=== PATIENT | female | born 1990 | race Caucasian/White ===

== ENCOUNTER 2019-01-05 13:43 | Emergency (ER) | payer OTHER ==
[2019-01-05 13:52] VITALS: BMI 34.2
--- NOTE | 2019-01-05 13:53 | PDOC ---
Rapid Medical Evaluation Time Seen by Provider: 01/05/19 13:48 Medical Evaluation: Allergies Allergy/AdvReac Type Severity Reaction Status Date / Time No Known Allergies Allergy Verified 12/30/14 23:15 01/05/19 13:48 The patient presents for diarrhea for 8 days. States she has to use the bathroom after every time she eats. Also admits to abdominal pain after eating. Denies vomiting and blood in the stool. States she took antibiotic recently ( cefdinir) Exam: NAD, abdomen soft, nontender Orders: labs, IV Pt to proceed to the ER for further evaluation Discharge Disposition - Diagnosis Acute diarrhea - Referrals - Patient Instructions - Post Discharge Activity
[2019-01-05] MEDS ORDERED: SODIUM CHLORIDE 1,000 ML IV STA (14:35)
[2019-01-05] MEDS ORDERED: KETOROLAC TROMETHAMINE 30 MG/1 ML VIAL IVPUSH STA (14:35)
[2019-01-05] MEDS ORDERED: PANTOPRAZOLE SODIUM 40 MG VIAL IVPUSH ONE (14:35)
--- NOTE | 2019-01-05 14:38 | PDOC ---
History of Present Illness - General Chief Complaint: Diarrhea Stated Complaint: DIARRHEA Time Seen by Provider: 01/05/19 13:48 History Source: Patient Exam Limitations: No Limitations - History of Present Illness Travel History: No Initial Comments: 01/05/19 14:13 28-year-old female presents to ED with complaints of intermittent diarrhea for the past 8 days. Patient states last normal bowel movement was approximately 8 days ago. Patient states has the urge to defecate every time she eats but unless she pushes she produces no bowel movement. Patient states continues to pass gas, denies recent illness, recent travel, fever or chills. Patient states feels dehydrated and complaining of upper abdominal cramping after meals. Timing/Duration: reports: intermittent Quality: reports: mild, cramping Abdominal Pain Onset Location: reports: epigastric Pain Radiation: reports: no radiation Activities at Onset: reports: eating Aggravating Factors: improves with: Eating Alleviating Factors: worse with: None Past History - Travel Traveled outside of the country in the last 30 days: No Close contact w/someone who was outside of country & ill: No - Past Medical History Allergies/Adverse Reactions: Allergies Allergy/AdvReac Type Severity Reaction Status Date / Time No Known Allergies Allergy Verified 01/05/19 13:52 Anemia: No Asthma: No Cancer: No Cardiac Disorders: No COPD: No Diabetes: No HTN: No Seizures: No Thyroid Disease: No - Surgical History Abdominal Surgery: Yes - Reproductive History Ectopic : No Endometrial CA: No Endometriosis: No Ovarian CA: No PID: No Polycystic Ovaries: No Therapeutic (s) & number: No Tubal Ligation: No - Psycho Social/Smoking Cessation Hx Smoking Status: No Smoking History: Never smoked Have you smoked in the past 12 months: No Number of Cigarettes Smoked Daily: 0 Hx Alcohol Use: No Drug/Substance Use Hx: Yes Substance Use Type: Marijuana Hx Substance Use Treatment: No Abd/GI Specific PMHX - Complaint Specific PMHX GERD: No GI Ulcer Disease: No Review of Systems - Review of Systems Able to Perform ROS?: Yes Constitutional: Yes: Loss of Appetite, Weakness. No: Chills, Fever HEENTM: No: Symptoms Reported Respiratory: No: Symptoms reported Cardiac (ROS): No: Symptoms Reported ABD/GI: Yes: Diarrhea, Nausea, Poor Appetite, Poor Fluid Intake, Abdominal cramping (Epigastric) : No: Symptoms Reported Musculoskeletal: No: Symptoms Reported Integumentary: No: Symptoms Reported Neurological: No: Symptoms reported Endocrine: No: Symptoms Reported Hematologic/Lymphatic: No: Symptoms Reported *Physical Exam - Vital Signs Last Vital Signs Temp Pulse Resp BP Pulse Ox 97.7 F 93 H 14 137/89 100 01/05/19 13:48 01/05/19 13:48 01/05/19 13:48 01/05/19 13:48 01/05/19 13:48 - Physical Exam General Appearance: Yes: Nourished, Appropriately Dressed. No: Apparent Distress HEENT: positive: EOMI, RAFAEL, Pharynx Normal (Dry). negative: Pale Conjunctivae Neck: positive: Supple Respiratory/Chest: positive: Lungs Clear, Normal Breath Sounds. negative: Chest Tender, Respiratory Distress, Accessory Muscle Use Cardiovascular: positive: Regular Rhythm, Regular Rate. negative: Murmur Gastrointestinal/Abdominal: positive: Normal Bowel Sounds, Soft, Tenderness ( Mild epigastric no right upper quadrant). negative: Distended Musculoskeletal: negative: CVA Tenderness Extremity: positive: Normal Inspection Integumentary: positive: Normal Color, Warm, Moist Neurologic: positive: Motor Strength 5/5 (Ambulatory) ED Treatment Course - LABORATORY CBC & Chemistry Diagram: 01/05/19 14:30 01/05/19 14:30 Medical Decision Making - Medical Decision Making 01/05/19 14:51 CC: Diarrhea intermittently for the past 8 days worsened after meals. Patient denies fever, chills but states decreased appetite, epigastric cramping and mild generalized weakness. Exam: Patient with epigastric tenderness on exam no right upper quadrant tenderness Vital signs stable appears dry. Plan: Labs, urine, IV fluids 01/05/19 15:53 Laboratory Tests 01/05/19 01/05/19 01/05/19 14:30 14:30 14:30 WBC 13.8 H Hgb 12.8 Hct 37.7 D Plt Count 459 H MPV 7.2 L Absolute Neuts (auto) 9.6 H PT with INR 12.70 INR 1.08 Sodium 139 Potassium 3.5 Chloride 106 Carbon Dioxide 26 Anion Gap 6 L BUN 13.2 Random Glucose 91 Calcium 9.5 Total Bilirubin 0.3 AST 14 L ALT 24 Alkaline Phosphatase 59 Total Protein 7.7 Albumin 4.6 Ur Specific [place] Urine Protein Urine Ketones Urine Blood Ur Leukocyte Esterase Urine WBC (Auto) Urine RBC (Auto) 01/05/19 15:00 WBC Hgb Hct Plt Count MPV Absolute Neuts (auto) PT with INR INR Sodium Potassium Chloride Carbon Dioxide Anion Gap BUN Random Glucose Calcium Total Bilirubin AST ALT Alkaline Phosphatase Total Protein Albumin Ur Specific [place] 1.040 H Urine Protein 1+ H Urine Ketones 1+ H Urine Blood 3+ H Ur Leukocyte Esterase 1+ H Urine WBC (Auto) 28 Urine RBC (Auto) 68 Patient states started menstruating this a.m. 01/05/19 18:05 Laboratory Tests 01/05/19 14:30 Serum , Qual Negative Patient to go to CAT scan 01/05/19 18:14 Laboratory Tests 01/05/19 14:30 Serum , Qual Negative Patient brought to CAT scan Discharge - Discharge Information Clinical Impression/Diagnosis: Acute diarrhea - Follow up/Referral - Patient Discharge Instructions - Post Discharge Activity
[2019-01-05 14:51] LABS: BASO % 0.9 % (0-2.0); EOS % 0.6 % (0-4.5); HEMATOCRIT 37.7 % (32.4-45.2); HEMOGLOBIN 12.8 GM/dL (10.7-15.3); LYMPH % 19.5 % (8-40); MCH 28.5 pg (25.7-33.7); MCHC 33.9 g/dl (32.0-36.0); MEAN CELL VOLUME 84.1 fl (80-96); MEAN PLT VOLUME 7.2 fl (7.5-11.1); MONO % 9.2 % (3.8-10.2); NEUT % 69.8 % (42.8-82.8); PLATELET COUNT 459 K/MM3 (134-434); RBC 4.48 M/mm3 (3.60-5.2); RDW 14.2 % (11.6-15.6); WHITE BLOOD COUNT 13.8 K/mm3 (4.0-10.0)
[2019-01-05] MEDS ORDERED: PANTOPRAZOLE SODIUM 40 MG VIAL ONE (15:06)
[2019-01-05] MEDS ORDERED: KETOROLAC TROMETHAMINE 30 MG/1 ML VIAL ONE (15:06)
[2019-01-05 15:19] LABS: INR 1.08 (0.83-1.09); PROTHROMBIN TIME (PATIENT) 12.7 SEC (9.7-13.0)
[2019-01-05 15:21] LABS: ALBUMIN 4.6 g/dl (3.4-5.0); BILIRUBIN,TOTAL 0.3 mg/dL (0.2-1); BLOOD UREA NITROGEN 13.2 mg/dL (7-18); CALCIUM 9.5 mg/dL (8.5-10.1); CREATININE 0.6 mg/dL (0.55-1.3); POTASSIUM 3.5 mmol/L (3.5-5.1); TOT PROT 7.7 g/dl (6.4-8.2)
[2019-01-05 15:48] LABS: HYALINE CASTS 27 /lpf (0-8); URINE APPEARANCE CLOUDY; URINE BILIRUBIN NEGATIVE (NEGATIVE); URINE COLOR YELLOW; URINE GLUCOSE (UA) NEGATIVE (NEGATIVE); URINE KETONE 1+ (NEGATIVE); URINE LEUK ESTERASE 1+ (NEGATIVE); URINE NITRITE NEGATIVE (NEGATIVE); URINE PROTEIN 1+ (NEGATIVE); URINE RBC 68 /hpf (0-4); URINE UROBILINOGEN 0.2 mg/dL (0.2-1.0); URINE WBC 28 /hpf (0-5)
[2019-01-05 16:53] VITALS: TEMP 98.5
--- NOTE | 2019-01-05 19:42 | PDOC ---
*Physical Exam - Vital Signs Last Vital Signs Temp Pulse Resp BP Pulse Ox 98.5 F 81 20 123/82 100 01/05/19 15:30 01/05/19 15:30 01/05/19 15:30 01/05/19 15:30 01/05/19 15:30 - Physical Exam General Appearance: Yes: Appropriately Dressed. No: Apparent Distress Respiratory/Chest: positive: Lungs Clear, Normal Breath Sounds. negative: Respiratory Distress, Accessory Muscle Use Cardiovascular: positive: Regular Rhythm, Regular Rate Gastrointestinal/Abdominal: positive: Normal Bowel Sounds, Soft. negative: Tender Musculoskeletal: positive: Normal Inspection. negative: CVA Tenderness ED Treatment Course - LABORATORY CBC & Chemistry Diagram: 01/05/19 14:30 01/05/19 14:30 - ADDITIONAL ORDERS Additional order review: Laboratory Results 01/05/19 01/05/19 01/05/19 15:00 14:30 14:30 PT with INR 12.70 INR 1.08 Sodium Potassium Chloride Carbon Dioxide Anion Gap BUN Creatinine Est GFR (CKD-EPI)AfAm Est GFR (CKD-EPI)NonAf Random Glucose Calcium Total Bilirubin AST ALT Alkaline Phosphatase Total Protein Albumin Serum , Qual Negative Urine Color Yellow Urine Appearance Cloudy Urine pH 6.0 Ur Specific [place] 1.040 H Urine Protein 1+ H Urine Glucose (UA) Negative Urine Ketones 1+ H Urine Blood 3+ H Urine Nitrite Negative Urine Bilirubin Negative Urine Urobilinogen 0.2 Ur Leukocyte Esterase 1+ H Urine WBC (Auto) 28 Urine RBC (Auto) 68 Urine Casts (Auto) 27 U Epithel Cells (Auto) 3.0 Urine Bacteria (Auto) 97.0 01/05/19 14:30 PT with INR INR Sodium 139 Potassium 3.5 Chloride 106 Carbon Dioxide 26 Anion Gap 6 L BUN 13.2 Creatinine 0.6 Est GFR (CKD-EPI)AfAm 141.76 Est GFR (CKD-EPI)NonAf 122.31 Random Glucose 91 Calcium 9.5 Total Bilirubin 0.3 AST 14 L ALT 24 Alkaline Phosphatase 59 Total Protein 7.7 Albumin 4.6 Serum , Qual Urine Color Urine Appearance Urine pH Ur Specific [place] Urine Protein Urine Glucose (UA) Urine Ketones Urine Blood Urine Nitrite Urine Bilirubin Urine Urobilinogen Ur Leukocyte Esterase Urine WBC (Auto) Urine RBC (Auto) Urine Casts (Auto) U Epithel Cells (Auto) Urine Bacteria (Auto) 01/05/19 14:30 RBC 4.48 MCV 84.1 MCHC 33.9 RDW 14.2 D MPV 7.2 L Neutrophils % 69.8 Lymphocytes % 19.5 Monocytes % 9.2 Eosinophils % 0.6 Basophils % 0.9 - Medications Given in the ED: ED Medications Discontinued Medications Generic Name Dose Route Start Last Admin Trade Name Khadarq PRN Reason Stop Dose Admin Sodium Chloride 1,000 mls @ 1,000 mls/hr 01/05/19 14:35 01/05/19 15:18 Normal Saline - IV 01/05/19 15:34 1,000 mls/hr ASDIR STA Administration Ketorolac Tromethamine 30 mg 01/05/19 14:35 01/05/19 15:19 Toradol Injection - IVPUSH 01/05/19 14:36 30 mg ONCE STA Administration Pantoprazole Sodium 40 mg 01/05/19 14:35 01/05/19 15:19 Protonix Iv IVPUSH 01/05/19 14:36 40 mg ONCE ONE Administration ED Progress Note - Progress Note Progress Note: 01/05/19 19:40 Received signout from nurse practitioner Tono. Briefly this a 28-year-old woman presents with abdominal pain and diarrhea for the past 8 days. No recent travel and upper abdominal cramping after eating. Laboratory testing notable for elevated WBC of 13.8. No shift noted. Coagulation profile is within normal limits Chemistries are unremarkable Urinalysis notable for 1+ protein, 1+ ketones, 3+ blood, 1+ leuk esterase, 28 WBCs on high-power field and 68 RBCs on high-power field. Patient is having her menstrual period at present. CT scan has been performed in the read is currently pending which will determine disposition. Medical Decision Making - Medical Decision Making 01/05/19 19:41 CT scan is read by Dr. Gamboa: No evidence of pneumoperitoneum, free intraperitoneal fluid or bowel obstruction. There is no CT evidence of acute appendicitis or diverticulitis. No obvious enteric colitis is noted. Mild to moderate enteric colitis may not be demonstratable on CT. The liver, spleen, pancreas, gallbladder, adrenal glands and kidneys demonstrate no discrete noncontrast pathology. The aorta appears unremarkable in caliber. No gross lymphadenopathy is noted. Elevation of the pelvis demonstrates no gross abnormality allowing for obscuring continuous unopacified bowel loops. Mild thoracolumbar dextrocurvature. Impression: No CT evidence of acute pathology identified. This patient currently feels better after receiving IV fluids. Discharge home to follow-up with primary doctor. I discussed the physical exam findings, ancillary test results and final diagnoses with the patient. I answered all of the patient's questions. The patient was satisfied with the care received and felt comfortable with the discharge plan and treatment plan. The patient will call their primary care physician within 24 hours to arrange follow-up and will return to the Emergency Department with any new, persistent or worsening symptoms. 01/05/19 19:41 Discharge - Discharge Information Problems reviewed: Yes Clinical Impression/Diagnosis: Acute diarrhea Condition: Fair Disposition: HOME - Admission No - Follow up/Referral - Patient Discharge Instructions Additional Instructions: Rest, drink lots of fluids: Teas, water, soups Malka ray, carbonated beverages for the bubbles May try peppermint teas Avoid heavy , spicy or fatty foods until symptoms have resolved Avoid contact with others until fevers and symptoms resolved Lots of handwashing and good hygiene Continue [id number] medications for symptomatic relief Tylenol or Motrin for fever and pain Followup with private physician in one to 2 days as needed Return to emergency department for worsened symptoms, fevers, dehydration - Post Discharge Activity Work/Back to School Note: Back to Work
[2019-01-05 21:19] VITALS: BP 129/86; PULSE 76
== END 2019-01-05 20:20 | disposition home or self-care (01) ==
LOC: JER 13:43
PROC: 3E033GC Introduction of Other Therapeutic Substance into Peripheral Vein, Percutaneous Approach (ICD-10-PCS; principal; 2019-01-05)
PROC: 3E0333Z Introduction of Anti-inflammatory into Peripheral Vein, Percutaneous Approach (ICD-10-PCS; 2019-01-05)
DX: R19.7 Diarrhea, unspecified (principal)
CPT/HCPCS: 36415; 74176-TC; 80053; 81003; 84703; 85025; 85610; 87045; 87046; 87086; 87186; 96374; 96375; 99284-25; J7030